=== PATIENT | female | born 1960 | race African-American/Black ===

== ENCOUNTER 2023-02-28 17:42 | Inpatient (IN) | payer OTHER ==
[2023-02-28 18:07] VITALS: BMI 19.8
[2023-02-28 20:19] LABS: PH,URINE 6.5 (5.0-8.0); URINE APPEARANCE CLEAR; URINE BILIRUBIN NEGATIVE (NEGATIVE); URINE COLOR YELLOW; URINE GLUCOSE (UA) NEGATIVE (NEGATIVE); URINE KETONE NEGATIVE (NEGATIVE); URINE LEUK ESTERASE NEGATIVE (NEGATIVE); URINE NITRITE NEGATIVE (NEGATIVE); URINE PROTEIN NEGATIVE (NEGATIVE); URINE UROBILINOGEN 0.2 mg/dL (0.2-1.0)
[2023-02-28 20:28] LABS: BASO % 0.3 % (0-2.0); HEMATOCRIT 19.6 % (32.4-45.2); LYMPH % 13.8 % (8-40); MCHC 32.2 g/dl (32.0-36.0); MEAN CELL VOLUME 99.5 fl (80-96); MEAN PLT VOLUME 10.2 fl (7.5-11.1); MONO % 4.8 % (3.8-10.2); NEUT % 74.1 % (42.8-82.8); PLATELET COUNT 132 10^3/uL (134-434); RBC 1.97 M/mm3 (3.60-5.2); RDW 20.7 % (11.6-15.6); WHITE BLOOD COUNT 3.7 K/mm3 (4.0-10.0)
[2023-02-28 20:38] LABS: HEMOGLOBIN 6.3 GM/dL (10.7-15.3)
[2023-02-28 20:46] LABS: POTASSIUM 4.6 mmol/L (3.5-5.1)
[2023-02-28 20:48] LABS: BLOOD UREA NITROGEN 37.8 mg/dL (7-18); CALCIUM 9.2 mg/dL (8.5-10.1)
[2023-02-28] MEDS ORDERED: PIPERACILLIN/TAZOB 3.375 GM 3.375 GM in DEXTROSE 5%-WATER - 50 ML IVPB ONE (20:48)
[2023-02-28] MEDS ORDERED: VANCOMYCIN 750 MG in DEXTROSE 5%-WATER - 150 ML IVPB ONE ×2 (20:49→21:30)
[2023-02-28 20:51] LABS: CREATININE 0.7 mg/dL (0.55-1.3)
[2023-02-28 20:53] LABS: VENOUS BASE EXCESS 0.2 mmol/L (-2-2); VENOUS O2 SATURATION 37.7 % (70-80); VENOUS PCO2 60.9 mmHg (38-52); VENOUS PH 7.269 (7.310-7.410)
[2023-02-28 20:53] LABS: BILIRUBIN,TOTAL 0.4 mg/dL (0.2-1); TOT PROT 6.2 g/dl (6.4-8.2)
[2023-02-28 20:54] LABS: ANISOCYTOSIS 1+; MACROCYTOSIS 0
[2023-02-28 21:02] LABS: INR 1.05 (0.83-1.09); PROTHROMBIN TIME (PATIENT) 12.2 SEC (9.7-13.0)
[2023-02-28 21:05] LABS: ACTIVATED PTT 33.4 SECONDS (25.2-36.5)
[2023-02-28] MEDS ORDERED: PIPERACILLIN/TAZOB 3.375 GM 3.375 GM/50 ML BAG IVPB ONE (21:11)
[2023-02-28] MEDS ORDERED: VANCOMYCIN/WATER FOR INJ (PEG) 750 MG/150 ML BAG IVPB ONE ×2 (21:21→21:30)
[2023-02-28] MEDS ORDERED: SODIUM CHLORIDE 500 ML IV STA (22:33)
[2023-03-01] MEDS: PANTOPRAZOLE SODIUM 40 MG VIAL IVPUSH SCH ×3 (01:10→22:53)
[2023-03-01] MEDS: SODIUM CHLORIDE 1,000 ML IV SCH ×2 (01:10→20:22)
[2023-03-01 02:47] LABS: BASO % 0.3 % (0-2.0); EOS % 6.5 % (0-4.5); HEMATOCRIT 18.2 % (32.4-45.2); MCH 31.8 pg (25.7-33.7); MCHC 32.8 g/dl (32.0-36.0); MEAN PLT VOLUME 9.9 fl (7.5-11.1); MONO % 7.4 % (3.8-10.2); NEUT % 72.8 % (42.8-82.8); PLATELET COUNT 116 10^3/uL (134-434); RBC 1.87 M/mm3 (3.60-5.2); WHITE BLOOD COUNT 4.7 K/mm3 (4.0-10.0)
[2023-03-01 02:53] LABS: HEMOGLOBIN 5.9 GM/dL (10.7-15.3)
[2023-03-01] MEDS ORDERED: ENOXAPARIN NA (PORCINE) 40 MG/0.4 ML DISP.SYRIN SQ SCH (10:00)
[2023-03-01 15:54] LABS: BASO % 0.6 % (0-2.0); EOS % 7.3 % (0-4.5); HEMATOCRIT 28.3 % (32.4-45.2); HEMOGLOBIN 9.6 GM/dL (10.7-15.3); LYMPH % 19.2 % (8-40); MCH 30.9 pg (25.7-33.7); MCHC 33.8 g/dl (32.0-36.0); MEAN CELL VOLUME 91.3 fl (80-96); MEAN PLT VOLUME 9.2 fl (7.5-11.1); MONO % 5.2 % (3.8-10.2); NEUT % 67.7 % (42.8-82.8); PLATELET COUNT 115 10^3/uL (134-434); RDW 19.8 % (11.6-15.6); WHITE BLOOD COUNT 3.1 K/mm3 (4.0-10.0)
[2023-03-01 16:11] LABS: POTASSIUM 4.5 mmol/L (3.5-5.1)
[2023-03-01 16:13] LABS: BLOOD UREA NITROGEN 30.9 mg/dL (7-18)
[2023-03-01 16:14] LABS: MAGNESIUM 2.4 mg/dL (1.8-2.4)
[2023-03-01 16:16] LABS: BILIRUBIN,DIRECT 0.1 mg/dL (0.0-0.2)
[2023-03-01 16:17] LABS: CREATININE 0.8 mg/dL (0.55-1.3)
[2023-03-01 16:18] LABS: BILIRUBIN,TOTAL 0.2 mg/dL (0.2-1); TOT PROT 6.1 g/dl (6.4-8.2)
[2023-03-02] MEDS: PANTOPRAZOLE SODIUM 40 MG VIAL IVPUSH SCH ×2 (09:31→22:19)
[2023-03-02 09:57] LABS: BASO % 0.4 % (0-2.0); EOS % 6.7 % (0-4.5); HEMATOCRIT 25.3 % (32.4-45.2); HEMOGLOBIN 8.6 GM/dL (10.7-15.3); LYMPH % 14.1 % (8-40); MCH 30.7 pg (25.7-33.7); MCHC 33.9 g/dl (32.0-36.0); MEAN CELL VOLUME 90.5 fl (80-96); MEAN PLT VOLUME 9.2 fl (7.5-11.1); MONO % 6.5 % (3.8-10.2); NEUT % 72.3 % (42.8-82.8); PLATELET COUNT 119 10^3/uL (134-434); RDW 19.6 % (11.6-15.6); WHITE BLOOD COUNT 3.9 K/mm3 (4.0-10.0)
[2023-03-02 10:06] LABS: CALCIUM 8.4 mg/dL (8.5-10.1)
[2023-03-02 10:07] LABS: ALBUMIN 2.7 g/dl (3.4-5.0); BLOOD UREA NITROGEN 23.1 mg/dL (7-18)
[2023-03-02 10:10] LABS: CREATININE 0.7 mg/dL (0.55-1.3)
[2023-03-02 10:11] LABS: BILIRUBIN,TOTAL 0.4 mg/dL (0.2-1); TOT PROT 5.5 g/dl (6.4-8.2)
[2023-03-02] MEDS ORDERED: cloNIDine HCL 0.1 MG TABLET PO ONE (14:28)
[2023-03-02] MEDS ORDERED: QUEtiapine FUMARATE 25 MG TABLET PO SCH ×2 (14:30→14:44)
[2023-03-02] MEDS: SODIUM CHLORIDE 1,000 ML IV SCH (22:17)
[2023-03-02] MEDS: cloNIDine HCL 0.1 MG TABLET GT SCH (22:19)
[2023-03-02] MEDS: QUEtiapine FUMARATE 25 MG TABLET GT SCH (22:19)
[2023-03-03] MEDS ORDERED: HYDROCHLOROTHIAZIDE 25 MG TABLET (FP) GT SCH (10:00)
[2023-03-03 10:35] LABS: BASO % 0.3 % (0-2.0); EOS % 6.9 % (0-4.5); HEMATOCRIT 25.4 % (32.4-45.2); HEMOGLOBIN 8.7 GM/dL (10.7-15.3); LYMPH % 11.3 % (8-40); MCH 31.4 pg (25.7-33.7); MCHC 34.4 g/dl (32.0-36.0); MEAN CELL VOLUME 91.3 fl (80-96); MEAN PLT VOLUME 8.6 fl (7.5-11.1); MONO % 6.7 % (3.8-10.2); NEUT % 74.8 % (42.8-82.8); PLATELET COUNT 106 10^3/uL (134-434); RBC 2.78 M/mm3 (3.60-5.2); RDW 18.7 % (11.6-15.6); WHITE BLOOD COUNT 4.1 K/mm3 (4.0-10.0)
[2023-03-03 10:47] LABS: POTASSIUM 4.1 mmol/L (3.5-5.1)
[2023-03-03 10:53] LABS: CALCIUM 8.6 mg/dL (8.5-10.1)
[2023-03-03 10:54] LABS: ALBUMIN 2.8 g/dl (3.4-5.0); BLOOD UREA NITROGEN 19.5 mg/dL (7-18)
[2023-03-03 10:57] LABS: CREATININE 0.7 mg/dL (0.55-1.3)
[2023-03-03 10:59] LABS: BILIRUBIN,TOTAL 0.7 mg/dL (0.2-1); TOT PROT 5.6 g/dl (6.4-8.2)
[2023-03-03] MEDS: POLYETHYLENE GLYCOL (HEALTHYLAX) 3350 17 GM PACKET GT SCH (11:15)
[2023-03-03] MEDS: PANTOPRAZOLE SODIUM 40 MG VIAL IVPUSH SCH ×2 (11:15→21:56)
[2023-03-03] MEDS: cloNIDine HCL 0.1 MG TABLET GT SCH ×2 (11:15→21:56)
[2023-03-04] MEDS: PANTOPRAZOLE SODIUM 40 MG VIAL IVPUSH SCH (10:14)
[2023-03-04] MEDS: cloNIDine HCL 0.1 MG TABLET GT SCH ×2 (10:14→21:28)
[2023-03-04] MEDS: POLYETHYLENE GLYCOL (HEALTHYLAX) 3350 17 GM PACKET GT SCH (10:14)
[2023-03-04 10:34] LABS: BASO % 0.4 % (0-2.0); EOS % 8.6 % (0-4.5); HEMATOCRIT 27.8 % (32.4-45.2); HEMOGLOBIN 9.3 GM/dL (10.7-15.3); LYMPH % 15.5 % (8-40); MCH 30.4 pg (25.7-33.7); MCHC 33.6 g/dl (32.0-36.0); MEAN CELL VOLUME 90.3 fl (80-96); MEAN PLT VOLUME 8.5 fl (7.5-11.1); MONO % 7.6 % (3.8-10.2); NEUT % 67.9 % (42.8-82.8); PLATELET COUNT 115 10^3/uL (134-434); RBC 3.08 M/mm3 (3.60-5.2); RDW 18.4 % (11.6-15.6); WHITE BLOOD COUNT 4.5 K/mm3 (4.0-10.0)
[2023-03-04 10:42] LABS: POTASSIUM 3.9 mmol/L (3.5-5.1)
[2023-03-04 10:45] LABS: ALBUMIN 2.9 g/dl (3.4-5.0); BLOOD UREA NITROGEN 20.8 mg/dL (7-18); CALCIUM 8.9 mg/dL (8.5-10.1)
[2023-03-04 10:48] LABS: CREATININE 0.7 mg/dL (0.55-1.3)
[2023-03-04 10:50] LABS: TOT PROT 6.1 g/dl (6.4-8.2)
[2023-03-04 10:54] LABS: BILIRUBIN,TOTAL 0.4 mg/dL (0.2-1)
[2023-03-04] MEDS: DEXTROSE 5%-0.45% SALINE 1,000 ML IV SCH (12:54)
[2023-03-04] MEDS: levETIRAcetam 500 MG/5 ML ORAL SOLUTION (UNIT-DOSE CUPS) GT SCH ×2 (12:54→21:27)
[2023-03-04] MEDS: QUEtiapine FUMARATE 25 MG TABLET GT SCH (21:28)
[2023-03-05] MEDS ORDERED: LEVOTHYROXINE NA 50 MCG TABLET (FP) GT SCH (07:00)
[2023-03-05] MEDS: levETIRAcetam 500 MG/5 ML ORAL SOLUTION (UNIT-DOSE CUPS) GT SCH (09:39)
[2023-03-05] MEDS: cloNIDine HCL 0.1 MG TABLET GT SCH (09:39)
[2023-03-05] MEDS: POLYETHYLENE GLYCOL (HEALTHYLAX) 3350 17 GM PACKET GT SCH (09:40)
[2023-03-05] MEDS ORDERED: PANTOPRAZOLE SOD 40 MG SUSPENSION PACKET PO SCH (10:00)
[2023-03-05 10:20] LABS: BASO % 0.4 % (0-2.0); EOS % 8.5 % (0-4.5); HEMATOCRIT 28.2 % (32.4-45.2); HEMOGLOBIN 9.4 GM/dL (10.7-15.3); LYMPH % 15.1 % (8-40); MCH 30.8 pg (25.7-33.7); MCHC 33.5 g/dl (32.0-36.0); MEAN CELL VOLUME 91.9 fl (80-96); MEAN PLT VOLUME 8.7 fl (7.5-11.1); MONO % 7.6 % (3.8-10.2); NEUT % 68.4 % (42.8-82.8); PLATELET COUNT 110 10^3/uL (134-434); RBC 3.07 M/mm3 (3.60-5.2); RDW 18.2 % (11.6-15.6); WHITE BLOOD COUNT 3.9 K/mm3 (4.0-10.0)
[2023-03-05 10:34] LABS: POTASSIUM 4.1 mmol/L (3.5-5.1)
[2023-03-05 10:36] LABS: CALCIUM 8.6 mg/dL (8.5-10.1)
[2023-03-05 10:37] LABS: ALBUMIN 2.8 g/dl (3.4-5.0); BLOOD UREA NITROGEN 20.2 mg/dL (7-18)
[2023-03-05 10:40] LABS: CREATININE 0.6 mg/dL (0.55-1.3)
[2023-03-05 10:42] LABS: BILIRUBIN,TOTAL 0.5 mg/dL (0.2-1); TOT PROT 5.9 g/dl (6.4-8.2)
[2023-03-05] MEDS: DEXTROSE 5%-0.45% SALINE 1,000 ML IV SCH (11:46)
[2023-03-05 15:48] VITALS: RESP 18
[2023-03-05 18:22] VITALS: BP 127/69; PULSE 73; TEMP 97.6
== END 2023-03-05 19:45 | DRG 253 ==
LOC: JER 17:42 → JERBED 21:43 → J5S 03-01 05:03
PROVIDERS: ADMIT Internal Medicine; ATTEND Internal Medicine
PROC: 30233N1 Transfusion of Nonautologous Red Blood Cells into Peripheral Vein, Percutaneous Approach (ICD-10-PCS; principal; 2023-03-01)
DX: K92.2 Gastrointestinal hemorrhage, unspecified (principal); J96.10 Chronic respiratory failure, unspecified whether with hypoxia or hypercapnia; L89.152 Pressure ulcer of sacral region, stage 2; E87.0 Hyperosmolality and hypernatremia; Z93.0 Tracheostomy status; I48.0 Paroxysmal atrial fibrillation; Z93.1 Gastrostomy status; D50.9 Iron deficiency anemia, unspecified; G40.909 Epilepsy, unspecified, not intractable, without status epilepticus; I10 Essential (primary) hypertension; J45.909 Unspecified asthma, uncomplicated; F41.8 Other specified anxiety disorders; E03.9 Hypothyroidism, unspecified
CPT/HCPCS: 0241U-QW; 36415; 36430; 71045-TC-FY; 76705-TC; 80048; 80053; 80076; 81003; 82272; 82607; 82728; 82803; 82962; 83540; 83550; 83605; 83615; 83735; 84439; 84443; 84484; 85025; 85610; 85730; 86850; 86900; 86901; 86922; 87040; 87086; 93005; 93010; 99285-25; P9058